=== PATIENT | female | born 2000 | race Caucasian/White ===

== ENCOUNTER 2023-03-12 20:04 | Emergency (ER) | payer OTHER ==
[~2023-03-12] VITALS: Ht 152.4 cm; Wt 36.3 kg
[2023-03-12 20:32] VITALS: BP 122/82; TEMP 98.4
[2023-03-12] MEDS ORDERED: predniSONE 20 MG TABLET PO ONE (21:30)
[2023-03-12] MEDS ORDERED: EPIN0.3P3 IM (21:37)
[2023-03-12] MEDS ORDERED: predniSONE 20 MG TABLET ONE (21:41)
[2023-03-12 21:52] VITALS: O2SAT 99
== END 2023-03-12 21:53 | disposition home or self-care (01) ==
LOC: ER 20:08
DX: L29.9 Pruritus, unspecified (principal); T78.40XA Allergy, unspecified, initial encounter; Z79.899 Other long term (current) drug therapy; Z91.018 Allergy to other foods; X58.XXXA Exposure to other specified factors, initial encounter
CPT/HCPCS: 99283; J7512